=== PATIENT | female | born 1995 | race American Indian/Alaskan Native ===

== ENCOUNTER 2020-07-11 09:17 | Emergency (ER) | payer SELFPAY ==
[2020-07-11 09:58] LABS: Bilirubin,Urine NEG (Negative); Blood,Urine MOD (Negative); Color,Urine Yellow (Yellow); Mucus,Urine FEW /HPF; Urobilinogen,Urine < 2.0 mg/dL (<2.0)
[2020-07-11 10:01] LABS: HCG Qualitative,Urine Negative (Negative)
[2020-07-11 10:14] LABS: Basophils % (Auto) 1.7 % (0.0-1.8); Eosinophils % (Auto) 1.4 % (0.0-4.3); Hematocrit 36.4 % (30.3-42.9); Hemoglobin 11.8 gm/dl (10.1-14.3); Lymphocytes # (Auto) 1.1 K/mm3 (1.2-5.4); Lymphocytes % (Auto) 41.4 % (13.4-35.0); Mean Corpuscular HGB Conc 33 % (30-34); Mean Corpuscular Volume 82 fl (79-97); Monocytes # (Auto) 0.4 K/mm3 (0.0-0.8); Monocytes % (Auto) 13.7 % (0.0-7.3); Platelet Count 262 K/mm3 (140-440); Red Blood Count 4.42 M/mm3 (3.65-5.03); Red Cell Distribution Width 17.2 % (13.2-15.2)
[2020-07-11 10:28] LABS: BUN/Creatinine Ratio 14; Blood Urea Nitrogen 11 mg/dL (7-17); Calcium 9.4 mg/dL (8.4-10.2); Hemolysis Index 12
--- NOTE | 2020-07-11 10:36 | Emergency Department Report ---
ED Abdominal Pain HPI - General Chief Complaint: Abdominal Pain Stated Complaint: PID PUI?: No Time Seen by Provider: 07/11/20 10:18 Source: patient Mode of arrival: Stretcher Limitations: No Limitations - History of Present Illness Initial Comments: 25-year-old female with no significant past medical history presenting with low er abdominal pain, intermittent, described as sharp and stabbing pains for the past few months. Reports of intermittent nausea but denies vomiting, diarrhea, fevers or any other related complaints. She denies any abnormal vaginal discharge but does state that her boyfriend recently tested positive for chlamydia. MD Complaint: abdominal pain -: Gradual Location: suprapubic Radiation: none Migration to: no migration Severity: moderate Improves With: nothing Worsens With: nothing Associated Symptoms: nausea - Related Data Previous Rx's Medication Instructions Recorded Last Taken Type metroNIDAZOLE [Flagyl] 2,000 mg PO ONCE #4 tab 07/11/20 Unknown Rx Allergies Allergy/AdvReac Type Severity Reaction Status Date / Time No Known Allergies Allergy Unverified 07/11/20 09:25 ED Review of Systems ROS: Stated complaint: PID Other details as noted in HPI Comment: All other systems reviewed and negative Gastrointestinal: as per HPI Genitourinary: as per HPI ED Past Medical Hx - Past Medical History Previous Medical History?: No - Surgical History Past Surgical History?: No - Social History Smoking Status: Never Smoker Substance Use Type: None - Medications Home Medications: Home Medications Medication Instructions Recorded Confirmed Last Taken Type metroNIDAZOLE [Flagyl] 2,000 mg PO ONCE #4 tab 07/11/20 Unknown Rx ED Physical Exam - General Limitations: No Limitations General appearance: alert, in no apparent distress - Head Head exam: Present: atraumatic, normocephalic - Eye Eye exam: Present: normal appearance - ENT ENT exam: Present: mucous membranes moist - Neck Neck exam: Present: normal inspection - Respiratory Respiratory exam: Present: normal lung sounds bilaterally. Absent: respiratory distress - Cardiovascular Cardiovascular Exam: Present: regular rate, normal rhythm. Absent: systolic murmur, diastolic murmur, rubs, gallop - GI/Abdominal GI/Abdominal exam: Present: soft, tenderness (Mild lower abdominal), normal bowel sounds. 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 Absent: adnexal mass - Extremities Exam Extremities exam: Present: normal inspection - Back Exam Back exam: Present: normal inspection - Neurological Exam Neurological exam: Present: alert, oriented X3 - Psychiatric Psychiatric exam: Present: normal affect, normal mood - Skin Skin exam: Present: warm, dry, intact, normal color. Absent: rash ED Course Vital Signs 07/11/20 09:24 Temperature 98.6 F Pulse Rate 80 Respiratory 18 Rate Blood Pressure 108/66 O2 Sat by Pulse 100 Oximetry ED Medical Decision Making - Lab Data Result diagrams: 07/11/20 09:52 07/11/20 09:52 hCG negative, clue cells on wet prep - Medical Decision Making Patient presenting with intermittent lower abdominal pain for the past couple months. Her boyfriend recently tested positive for chlamydia and she is concerned that this may be the cause. Reports nausea but no other associated symptoms. On exam she has some mild lower abdominal tenderness. No focal right upper or right lower quadrant tenderness. Labs show mild leukopenia, hcg neg, wet prep with clue cells. Empirically treated w/ Rocephin/Azithromycin. Follow up [employer]INE [employer]. - Differential Diagnosis Cervicitis, PID, UTI, unlikely surgical process such as appendicitis Critical care attestation.: If time is entered above; I have spent that time in minutes in the direct care of this critically ill patient, excluding procedure time. ED Disposition Clinical Impression: Cervicitis, Bacterial vaginosis Disposition: DC-01 TO HOME OR SELFCARE Is pt being admited?: No Condition: Good Instructions: Abdominal Pain (ED), Cervicitis (ED), Bacterial Vaginosis (ED) Prescriptions: metroNIDAZOLE [Flagyl] 2,000 mg PO ONCE #4 tab Referrals: PRIMARY MD FELICIANO [Primary Care Provider] - 3-5 Days SCOTT HOFFMANN MD [Staff Physician] - 3-5 Days Forms: STI Treatment and Prevention Time of Disposition: 11:57
[2020-07-11 10:38] VITALS: BP 108/66
[2020-07-11] MEDS ORDERED: LIDOCAINE-MPF (1%) 10 MG/1 ML VIAL 5 ML INFILTRATI ONE (10:38)
[2020-07-11] MEDS ORDERED: AZITHROMYCIN 250 MG TAB PO ONE (10:38)
== END 2020-07-11 12:21 | disposition home or self-care (01) ==
LOC: ED 09:17
DX: N72 Inflammatory disease of cervix uteri (principal); N76.0 Acute vaginitis; B96.89 Other specified bacterial agents as the cause of diseases classified elsewhere; Z79.899 Other long term (current) drug therapy
CPT/HCPCS: 36415; 80048; 81001; 81025; 84702; 85025; 87210; 87591; 96372; 99284; J0696